=== PATIENT | female | born 1970 | race American Indian/Alaskan Native ===

== ENCOUNTER 2019-10-20 18:09 | Emergency (ER) | payer OTHER ==
--- NOTE | 2019-10-20 18:21 | Event Note ---
ED Screening Note Date of service: 10/20/19 Time: 18:17 ED Screening Note: Pt complains of chest pain and SOB x this morning denies smoker denies leg pain/swelling or hormone use This initial assessment/diagnostic orders/clinical plan/treatment(s) is/are subject to change based on patients health status, clinical progression and re- assessment by fellow clinical providers in the ED. Further treatment and workup at subsequent clinical providers discretion. Patient/guardian urged not to elope from the ED as their condition may be serious if not clinically assessed and managed. Initial orders include: labs EKG CXR
[2019-10-20 18:45] LABS: Basophils # (Auto) 0.1 K/mm3 (0.0-0.1); Basophils % (Auto) 0.9 % (0.0-1.8); Eosinophils # (Auto) 0.3 K/mm3 (0.0-0.4); Eosinophils % (Auto) 3.8 % (0.0-4.3); Hemoglobin 10.7 gm/dl (10.1-14.3); Lymphocytes % (Auto) 28.2 % (13.4-35.0); Mean Corpuscular HGB Conc 32 % (30-34); Mean Corpuscular Volume 80 fl (79-97); Monocytes # (Auto) 0.6 K/mm3 (0.0-0.8); Monocytes % (Auto) 8.3 % (0.0-7.3); Platelet Count 274 K/mm3 (140-440); Red Blood Count 4.11 M/mm3 (3.65-5.03); Red Cell Distribution Width 15.2 % (13.2-15.2)
[2019-10-20 19:18] LABS: Alanine Aminotransferase 13 units/L (7-56); Albumin 3.7 g/dL (3.9-5); BUN/Creatinine Ratio 15; Blood Urea Nitrogen 9 mg/dL (7-17); Calcium 9.3 mg/dL (8.4-10.2); Hemolysis Index 18
--- NOTE | 2019-10-20 19:44 | XRay Report ---
CHEST 2 VIEWS INDICATION: Chest Pain. COMPARISON: None. FINDINGS: Support devices: None. Heart: Within normal limits. Lungs/Pleura: No acute air space or interstitial disease. No significant pleural effusion. IMPRESSION: No acute findings. Signer Name: Jeremy Mccain MD Signed: 10/20/2019 7:40 PM Workstation Name: [id number]
[2019-10-20] MEDS ORDERED: MORPHINE 4 MG/1 ML INJ IV ONE (22:01)
[2019-10-21 00:31] VITALS: BP 131/65
--- NOTE | 2019-10-21 00:34 | Cat Scan Report ---
CTA CHEST WITH IV CONTRAST, 10/20/2019 INDICATION: Chest pain. Shortness of breath. TECHNIQUE: Axial CT images were obtained through the chest after injection of IV contrast. Coronal oblique 2-D reconstruction images were produced. 3 plane MIP reconstruction images were produced at an [employer] workstation. All CTs at this facility utilize dose reduction techniques including automated expos ure control, iterative reconstruction and weight based dosing when appropriate to reduce patient radi ation dose to as low as reasonable achievable. COMPARISON: Chest radiograph, 10/20/2019 FINDINGS: No central or segmental filling defects are identified within the pulmonary arteries to suggest pulmo nary embolism. The heart is normal in size. The thoracic aorta is normal in caliber. Evaluation of th e lung parenchyma demonstrates no focal airspace disease or pleural effusion. Limited imaging of the upper abdomen demonstrates no evidence of acute abnormality. Evaluation of bon y structures demonstrates no evidence of acute bony abnormality.. IMPRESSION: 1. No evidence of pulmonary embolism or acute parenchymal process. Signer Name: Di Anderson MD Signed: 10/21/2019 12:30 AM Workstation Name: [id number]
[2019-10-21] MEDS ORDERED: HYDROcodone/ACETAMINOPHEN 5-325 MG TAB PO ONE ×2 (00:45)
[2019-10-21] MEDS ORDERED: LORazepam 1 MG TAB PO ONE (00:45)
--- NOTE | 2019-10-21 00:56 | Emergency Department Report ---
ED General Adult HPI - General Chief complaint: Dyspnea/Respdistress Stated complaint: YONATHAN Time Seen by Provider: 10/20/19 18:17 Source: patient Mode of arrival: Ambulatory Limitations: No Limitations - History of Present Illness Initial comments: is a 49-year-old female who is presenting with 3 weeks of shortness of breath with chest pain. Patient states that approximately 3 weeks ago she started having a cough for approximately a week. Cough is resolved but she is still stating that she has shortness of breath and pain center chest when she takes a deep breath. Patient also states that the pain is worse with lying flat. Patient denies fevers chills nausea vomiting diarrhea. Patient states the pain is sharp in nature and is 9 out of 10 in severity. Severity scale (0 -10): 10 - Related Data Previous Rx's Medication Instructions Recorded Last Taken Type DOXYCYCLINE Hyclate [Vibramycin 100 mg PO BID #14 capsule 07/16/13 Unknown Rx CAP] Fluticasone/Salmeterol [Advair 1 puff IH BID #1 disk.w.dev 07/16/13 Unknown Rx Diskus 250-50 mcg] Ipratropium/Albuter (Nf) 2 puff IH QID #30 inha 07/16/13 Unknown Rx [Combivent Inhaler] guaiFENesin DM [Robitussin Dm] 5 ml PO Q8HR PRN #1 oral.liqd 07/16/13 Unknown Rx ALBUTEROL Inhaler (OR & NICU) 2 puff IH QID PRN #1 inhalation 10/21/19 Unknown Rx [ProAir HFA Inhaler] HYDROcodone/APAP 5-325 [Smoaks 1 each PO Q6HR PRN #10 tablet 10/21/19 Unknown Rx 5/325] predniSONE [Deltasone] 20 mg PO QDAY #5 tab 10/21/19 Unknown Rx Allergies Allergy/AdvReac Type Severity Reaction Status Date / Time No Known Allergies Allergy Unverified 07/14/13 11:52 ED Review of Systems ROS: Stated complaint: YONATHAN Other details as noted in HPI Comment: All other systems reviewed and negative ED Past Medical Hx - Past Medical History Previous Medical History?: Yes Hx Congestive Heart Failure: No Hx Diabetes: No Hx Asthma: No Hx COPD: No Hx HIV: No Additional medical history: SOB - Surgical History Past Surgical History?: Yes Additional Surgical History: c section x 3 - Social History Smoking Status: Never Smoker - Medications Home Medications: Home Medications Medication Instructions Recorded Confirmed Last Taken Type DOXYCYCLINE Hyclate [Vibramycin 100 mg PO BID #14 capsule 07/16/13 Unknown Rx CAP] Fluticasone/Salmeterol [Advair 1 puff IH BID #1 disk.w.dev 07/16/13 Unknown Rx Diskus 250-50 mcg] Ipratropium/Albuter (Nf) 2 puff IH QID #30 inha 07/16/13 Unknown Rx [Combivent Inhaler] guaiFENesin DM [Robitussin Dm] 5 ml PO Q8HR PRN #1 oral.liqd 07/16/13 Unknown Rx ALBUTEROL Inhaler (OR & NICU) 2 puff IH QID PRN #1 inhalation 10/21/19 Unknown Rx [ProAir HFA Inhaler] HYDROcodone/APAP 5-325 [Smoaks 1 each PO Q6HR PRN #10 tablet 10/21/19 Unknown Rx 5/325] predniSONE [Deltasone] 20 mg PO QDAY #5 tab 10/21/19 Unknown Rx ED Physical Exam - General Limitations: No Limitations General appearance: alert, in distress - Head Head exam: Present: atraumatic, normocephalic - Eye Eye exam: Present: normal appearance - ENT ENT exam: Present: mucous membranes moist - Neck Neck exam: Present: normal inspection - Respiratory Respiratory exam: Present: normal lung sounds bilaterally. Absent: respiratory distress, wheezes, rales, rhonchi - Cardiovascular Cardiovascular Exam: Present: regular rate, normal rhythm. Absent: systolic murmur, diastolic murmur, rubs, gallop - GI/Abdominal GI/Abdominal exam: Present: soft, normal bowel sounds - Extremities Exam Extremities exam: Present: normal inspection - Back Exam Back exam: Present: normal inspection - Neurological Exam Neurological exam: Present: alert, oriented X3 - Psychiatric Psychiatric exam: Present: normal affect, normal mood - Skin Skin exam: Present: warm, dry, intact, normal color. Absent: rash ED Course Vital Signs 10/20/19 10/20/19 10/20/19 18:11 22:42 22:45 Temperature 97.6 F Pulse Rate 79 64 Respiratory 20 21 Rate Blood Pressure 122/63 185/63 O2 Sat by Pulse 100 99 100 Oximetry 10/20/19 10/20/19 10/20/19 23:01 23:15 23:30 Temperature Pulse Rate 62 60 61 Respiratory 25 H 13 21 Rate Blood Pressure 165/66 153/66 155/64 O2 Sat by Pulse 100 100 100 Oximetry 10/20/19 10/21/19 10/21/19 23:51 00:00 00:15 Temperature Pulse Rate Respiratory 14 11 L 14 Rate Blood Pressure 155/64 150/62 131/65 O2 Sat by Pulse 100 99 100 Oximetry ED Medical Decision Making - Lab Data Result diagrams: 10/20/19 18:27 10/20/19 18:27 Lab Results 10/20/19 10/20/19 10/20/19 Range/Units 18:27 18:27 18:27 WBC 7.1 (4.5-11.0) K/mm3 RBC 4.11 (3.65-5.03) M/mm3 Hgb 10.7 (10.1-14.3) gm/dl Hct 33.0 (30.3-42.9) % MCV 80 (79-97) fl MCH 26 L (28-32) pg MCHC 32 (30-34) % RDW 15.2 (13.2-15.2) % Plt Count 274 (140-440) K/mm3 Lymph % (Auto) 28.2 (13.4-35.0) % Jackson % (Auto) 8.3 H (0.0-7.3) % Eos % (Auto) 3.8 (0.0-4.3) % Baso % (Auto) 0.9 (0.0-1.8) % Lymph # 2.0 (1.2-5.4) K/mm3 Jackson # 0.6 (0.0-0.8) K/mm3 Eos # 0.3 (0.0-0.4) K/mm3 Baso # 0.1 (0.0-0.1) K/mm3 Seg Neutrophils % 58.8 (40.0-70.0) % Seg Neutrophils # 4.2 (1.8-7.7) K/mm3 D-Dimer (0-234) ng/mlDDU Sodium 136 L (137-145) mmol/L Potassium 4.0 (3.6-5.0) mmol/L Chloride 100.8 (98-107) mmol/L Carbon Dioxide 23 (22-30) mmol/L Anion Gap 16 mmol/L BUN 9 (7-17) mg/dL Creatinine 0.6 L (0.7-1.2) mg/dL Estimated GFR > 60 ml/min BUN/Creatinine Ratio 15 % Glucose 155 H (65-100) mg/dL Calcium 9.3 (8.4-10.2) mg/dL Total Bilirubin 0.30 (0.1-1.2) mg/dL AST 21 (5-40) units/L ALT 13 (7-56) units/L Alkaline Phosphatase 55 (35-129) units/L Troponin T (0.00-0.029) ng/mL NT-Pro-B Natriuret Pep 11.76 (0-900) pg/mL Total Protein 7.9 (6.3-8.2) g/dL Albumin 3.7 L (3.9-5) g/dL Albumin/Globulin Ratio 0.9 % 10/20/19 10/20/19 Range/Units 21:27 22:22 WBC (4.5-11.0) K/mm3 RBC (3.65-5.03) M/mm3 Hgb (10.1-14.3) gm/dl Hct (30.3-42.9) % MCV (79-97) fl MCH (28-32) pg MCHC (30-34) % RDW (13.2-15.2) % Plt Count (140-440) K/mm3 Lymph % (Auto) (13.4-35.0) % Jackson % (Auto) (0.0-7.3) % Eos % (Auto) (0.0-4.3) % Baso % (Auto) (0.0-1.8) % Lymph # (1.2-5.4) K/mm3 Jackson # (0.0-0.8) K/mm3 Eos # (0.0-0.4) K/mm3 Baso # (0.0-0.1) K/mm3 Seg Neutrophils % (40.0-70.0) % Seg Neutrophils # (1.8-7.7) K/mm3 D-Dimer 307.77 H (0-234) ng/mlDDU Sodium (137-145) mmol/L Potassium (3.6-5.0) mmol/L Chloride (98-107) mmol/L Carbon Dioxide (22-30) mmol/L Anion Gap mmol/L BUN (7-17) mg/dL Creatinine (0.7-1.2) mg/dL Estimated GFR ml/min BUN/Creatinine Ratio % Glucose (65-100) mg/dL Calcium (8.4-10.2) mg/dL Total Bilirubin (0.1-1.2) mg/dL AST (5-40) units/L ALT (7-56) units/L Alkaline Phosphatase (35-129) units/L Troponin T < 0.010 (0.00-0.029) ng/mL NT-Pro-B Natriuret Pep (0-900) pg/mL Total Protein (6.3-8.2) g/dL Albumin (3.9-5) g/dL Albumin/Globulin Ratio % - EKG Data -: EKG Interpreted by Pa EKG shows normal: sinus rhythm, axis, intervals, QRS complexes, ST-T waves Rate: normal - EKG Data Interpretation: normal EKG - Radiology Data Patient: TACHO HANSON MR#: [id number] : 1970 Acct:[id number] Age/Sex: 49 / F ADM Date: 10/20/19 Loc: ED Attending Dr: Ordering Physician: PIERRE JOEL MD Date of Service: 10/20/19 Procedure(s): CT angio chest Accession Number(s): [id number] cc: PIERRE JOEL MD CTA CHEST WITH IV CONTRAST, 10/20/2019 INDICATION: Chest pain. Shortness of breath. TECHNIQUE: Axial CT images were obtained through the chest after injection of IV contrast. Coronal oblique 2- D reconstruction images were produced. 3 plane MIP reconstruction images were produced at an independent workstation. All CTs at this facility utilize dose reduction techniques including automated exposure control, iterative reconstruction and weight based dosing when appropriate to reduce patient radiation dose to as low as reasonable achievable. COMPARISON: Chest radiograph, 10/20/2019 FINDINGS: No central or segmental filling defects are identified within the pulmonary arteries to suggest pulmonary embolism. The heart is normal in size. The thoracic aorta is normal in caliber. Evaluation of the lung parenchyma demonstrates no focal airspace disease or pleural effusion. Limited imaging of the upper abdomen demonstrates no evidence of acute abnormality. Evaluation of bony structures demonstrates no evidence of acute bony abnormality.. IMPRESSION: 1. No evidence of pulmonary embolism or acute parenchymal process. Signer Name: Di Anderson MD Signed: 10/21/2019 12:30 AM Workstation Name: [id number] - Medical Decision Making Patient is a 49-year-old female who is presenting with shortness of breath and pain in the chest which is pleuritic in nature for the last 3 wee ks. Patient initially had a cough and the beginning of the face illness the cough is resolved. Patient's d-dimer was slightly elevated and a CT angiogram of the chest was ordered. CT angios negative for pulmonary embolus or pneumonia. Patient be discharged home with medication for symptomatic relief for treatment of pleurisy. Critical care attestation.: If time is entered above; I have spent that time in minutes in the direct care of this critically ill patient, excluding procedure time. ED Disposition Clinical Impression: Pleurisy Disposition: DC-01 TO HOME OR SELFCARE Is pt being admited?: No Does the pt Need Aspirin: No Condition: Stable Instructions: Pleurisy (ED) Referrals: PRIMARY CARE, [Primary Care Provider] - 3-5 Days Time of Disposition: 00:55
== END 2019-10-21 01:51 | disposition home or self-care (01) ==
LOC: ED 18:09
DX: R09.1 Pleurisy (principal); Z79.899 Other long term (current) drug therapy
CPT/HCPCS: 36415; 71046; 71275; 80053; 83880; 84484; 85025; 85379; 93005; 93010; 96374; 99285; J2270; Q9967